=== PATIENT | female | born 1950 | race Caucasian/White ===

== ENCOUNTER → 2018-05-05 | Outpatient (CLI) | payer MEDICARE ==
--- NOTE | 2018-05-05 16:00 | Diagnostic Imaging Report ---
INDICATION: Screening for osteoporosis. EXAMINATION: DEXA scan. COMPARISON: This study was compared to the prior exam of 02/11/2016. FINDINGS: The bone mineral density of the hips and spine was measured. The T-score for the spine is -4.1. On the prior study the T-score was -4.0. The T-score for each hip is -3.0. Previously the T-score for each hip was -3.1. IMPRESSION: There has been no significant change in the bone mineral density of the hips and spine in the interval since the prior exam. There is still osteoporosis of the hips and spine. Dictated by: Dictated on workstation # [id number]
== END ==
LOC: RAD 10:39
PROVIDERS: ATTEND Internal Medicine
DX: Z13.820 Encounter for screening for osteoporosis (principal); M81.0 Age-related osteoporosis without current pathological fracture
CPT/HCPCS: 77080

== ENCOUNTER 2019-09-24 10:45 | Emergency (ER) | payer MEDICARE ==
[~2019-09-24] VITALS: Ht 160 cm; Wt 62.0 kg
--- NOTE | 2019-09-24 11:07 | ED Integumentary General ---
General Stated Complaint: R SIDE FACE/EYE REDNESS AND SWELLING Source: patient Exam Limitations: no limitations History of Present Illness Date Seen by Provider: Sep 24, 2019 Time Seen by Provider: 11:03 Initial Comments To ER with left periorbital redness and swelling that began the day after Thanksgiving. Part of this is itchy and part of it is painful. She has several areas that are crusted. Her vision is unaffected and she has no eye pain. 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 Deluca Timing/Duration: just prior to arrival Severity: moderate Location: face Associated Symptoms: denies symptoms Allergies and Home Medications Allergies Coded Allergies: No Known Drug Allergies (Unverified , 09/24/19) Patient Home Medication List Home Medication List Reviewed: Yes Review of Systems Review of Systems Constitutional: see HPI EENTM: see HPI Respiratory: no symptoms reported Cardiovascular: no symptoms reported Genitourinary: no symptoms reported Musculoskeletal: no symptoms reported Skin: no symptoms reported Psychiatric/Neurological: No Symptoms Reported Endocrine: No Symptoms Reported Past Odowfgb-Qgkejv-Tppemd Hx Patient Social History Recent Foreign Travel: No Contact w/Someone Who Travel: No Physical Exam Vital Signs Vital Signs - First Documented 09/24/19 11:12 Temp 36.7 Pulse 84 Resp 18 B/P (MAP) 143/69 (93) Pulse Ox 96 O2 Delivery Room Air Capillary Refill : General Appearance: WD/WN, no apparent distress HEENT: PERRL/EOMI, TMs normal, pharynx normal, other (there is edema to the lower eyelid on the left, there is erythema to the forehead and the upper eyelid on the left. There are a few ruptured vesicles consistent with herpes zoster. This lesion does not cross midline, it is tender to palpation. No lesions on the nose. No scleral injection) Neck: non-tender, full range of motion Cardiovascular: regular rate, rhythm, no murmur Respiratory: normal breath sounds, no respiratory distress, no accessory muscle use Gastrointestinal: normal bowel sounds, non tender Neurologic/Psychiatric: alert, normal mood/affect, oriented x 3 Skin: normal color, warm/dry Progress/Results/Core Measures Results/Orders My Orders Orders - KY SHEARER APRN Valacyclovir Tablet (Valtrex Tablet) (09/24/19 11:15) Prednisone Tablet (Deltasone Tablet) (09/24/19 11:15) Vital Signs/I&O 09/24/19 11:12 Temp 36.7 Pulse 84 Resp 18 B/P (MAP) 143/69 (93) Pulse Ox 96 O2 Delivery Room Air Departure Communication (Admissions) Dr. Healy recommends oral acyclovir for about 48 hours before starting a topical steroid. She should be reevaluated in 24-48 hours to determine need for topical steroid at that point Impression Primary Impression: Herpes zoster virus infection of face and ear nerves Disposition: HOME, SELF-CARE Condition: Stable Departure-Patient Inst. Decision time for Depature: 11:18 Referrals: SANDRA HEALY OD, WILLIAM J DO (PCP/Family) Primary Care Physician Patient Instructions: Shingles (DC) Add. Discharge Instructions: 1. Antiviral and antibiotic as directed. Oral steroids as directed. Call your eye doctor tomorrow to make an appointment to be seen tomorrow or Wednesday. If he is unable to see you them, call Dr. Healy either way you need to be seen by an eye doctor within 48 hours. Scripts Prednisone (Prednisone) 10 Mg Tab.ds.pk 10 MG PO DAILY, #21 EA Take 6 tabs(60mg)daily,decrease by 1 tab(10MG)daily. Prov: KY SHEARER APRN 09/24/19 Valacyclovir HCl (Valacyclovir) 1,000 Mg Tablet 1000 MG PO TID, #21 TAB Prov: KY SHEARER APRN 09/24/19 Cephalexin (Keflex) 500 Mg Capsule 500 MG PO TID, #21 CAP Prov: KY SHEARER APRN 09/24/19 Images Head/Face 1 - Other-See Progress Note Copy Copies To 1: CHIDI CASSIDY PETER J APRN Sep 24, 2019 11:07 POS
[2019-09-24] MEDS ORDERED: VALACYCLOVIR 500 MG TAB (VALTREX) PO SCH (11:15)
[2019-09-24] MEDS ORDERED: predniSONE 20 MG TAB PO ONE (11:15)
[2019-09-24 11:18] VITALS: BP 143/69
[2019-09-24] MEDS ORDERED: VALA1000 PO (11:22)
[2019-09-24] MEDS ORDERED: CEPH-507 PO (11:22)
[2019-09-24] MEDS ORDERED: PRED10TA22 PO (11:22)
--- OUTSIDE RECORDS SUMMARY | 2019-10-19 07:00 | XMS REPORT | Continuity of Care Document ---
Author Organization Unknown Address Unknown Phone Unavailable Allergies Active Description Code Type Severity Reaction Onset Reported/Identified Relationship to Patient Clinical Status Yes No Known Drug Allergies [id number] Drug Allergy Unknown N/A 09/24/2019 Medications There is no data. Problems Date Dx Coded Attending Type Code Diagnosis Diagnosed By 02/12/2016 CHIDI CASSIDY DO, Ot M81.0 AGE-RELATED OSTEOPOROSIS W/O CURRENT PAT 02/12/2016 CHIDI CASSIDY DO, Ot M81.0 AGE-RELATED OSTEOPOROSIS W/O CURRENT PAT 03/03/2016 CHIDI CASSIDY DO, Ot M81.0 AGE-RELATED OSTEOPOROSIS W/O CURRENT PAT 03/22/2018 CHIDI CASSIDY DO, Ot M81.0 AGE-RELATED OSTEOPOROSIS W/O CURRENT PAT 04/29/2018 CHIDI CASSIDY DO, Ot M81.0 AGE-RELATED OSTEOPOROSIS W/O CURRENT PAT 05/02/2018 CHIDI CASSIDY DO, Ot M81.0 AGE-RELATED OSTEOPOROSIS W/O CURRENT PAT 05/02/2018 CHIDI CASSIDY DO, Ot M81.0 AGE-RELATED OSTEOPOROSIS W/O CURRENT PAT 05/04/2018 CHIDI CASSIDY DO, Ot M81.0 AGE-RELATED OSTEOPOROSIS W/O CURRENT PAT 05/11/2018 CHIDI CASSIDY DO, Ot M81.0 AGE-RELATED OSTEOPOROSIS W/O CURRENT PAT 05/11/2018 CHIDI CASSIDY DO, Ot Z13.820 ENCOUNTER FOR SCREENING FOR OSTEOPOROSIS 05/11/2018 CHIDI CASSIDY DO, Ot M81.0 AGE-RELATED OSTEOPOROSIS W/O CURRENT PAT 05/11/2018 CHIDI CASSIDY DO, Ot Z13.820 ENCOUNTER FOR SCREENING FOR OSTEOPOROSIS 09/24/2019 CHIDI CASSIDY DO, Ot M81.0 AGE-RELATED OSTEOPOROSIS W/O CURRENT PAT 09/24/2019 CHIDI CASSIDY DO, Ot M81.0 AGE-RELATED OSTEOPOROSIS W/O CURRENT PAT 09/24/2019 CHIDI CASSIDY DO, Ot Z13.820 ENCOUNTER FOR SCREENING FOR OSTEOPOROSIS 09/29/2019 KY SHEARER APRN Ot B02 .8 ZOSTER WITH OTHER COMPLICATIONS Procedures There is no data. Results There is no data. Encounters ACCT No. Visit Date/Time Discharge Status Pt. Type Provider Facility Loc./Unit Complaint [id number] 09/24/2019 10:46:00 019 11:38:00 DIS Outpatient [place] SHEARER APRN [facility] ER R SIDE FACE/EYE REDNESS AND SWELLING [id number] 05/05/2018 10:39:00 018 23:59:59 CLS Outpatient CHIDI CASSIDY DO [facility] RAD AGE RELATED OST EOPOROSIS [id number] 03/22/2018 12:41:00 018 23:59:59 CLS Preadmit CHIDI CASSIDY DO [facility] RAD SCREEN [id number] 02/11/2016 10:50:00 016 23:59:59 CLS Outpatient CHIDI CASSIDY DO [facility] RAD ME1.0
== END 2019-09-24 11:38 | disposition home or self-care (01) ==
LOC: EDUNIT# 10:45 → ER 10:46
DX: B02.8 Zoster with other complications (principal)
CPT/HCPCS: 99282

== ENCOUNTER → 2021-04-01 | Outpatient (CLI) | payer MEDICARE ==
[~2021-04-01] MED LIST: CEPH-507 PO; PRED10TA22 PO; VALA10007 PO
--- NOTE | 2021-04-01 13:48 | Diagnostic Imaging Report ---
INDICATION: Postmenopausal state. COMPARISON: 05/05/2018 FINDINGS: AP Spine L1-L4: [BMD (g/cm2): 0.745] [T-Score: -3.8] [Z-Score: -2.1] [BMD Previous: 0.709] [BMD % Change: 5.1] LT Hip Neck: [BMD (g/cm2): 0.571] [T-Score: -3.4] [Z-Score: -1.6] LT Hip Total: [BMD (g/cm2):0.611] [T-Score:-3.2] [Z-Score: -1.6] [BMD Previous: 0.625] [BMD % Change: -2.2] RT Hip Neck: [BMD (g/cm2):0.578] [T-Score:-3.3] [Z-Score:-1.5] RT Hip Total: [BMD (g/cm2):0.598] [T-score:-3.3] [Z-Score:-1.7] [BMD Previous:0.631] [BMD % Change:-5.2] *Indicates significant change from prior examination based on 95% confidence level. World Health Organization criteria for BMD interpretation classify patients as Normal (T-score at or above -1.0), Osteopenic (T-score between -1.0 and -2.5) or Osteoporotic (T-score at or below -2.5). LIMITATIONS AND MODIFICATION: None. FRACTURE RISK (FRAX SCORE): The ten year probability of (%): Major Osteoporotic Fracture: [23.3] Hip Fracture: [9.5] IMPRESSION: 1. Osteoporosis. 2. No significant change in bone mineral density since prior examination. 3. See below National Osteoporosis Foundation guidelines on when to potentially initiate pharmacologic therapy. Based on the National Osteoporosis Foundation Guidelines, pharmacologic treatment should be initiated in any of the following, unless clinical conditions suggest otherwise: * Any patient with prior fragility fracture of the hip or vertebrae. A spine fracture indicates 5X risk for subsequent spine fracture and 2X risk for subsequent hip fracture. * Osteoporosis (T-score <-2.5). * Postmenopausal women and men age 50 and older with low bone mass/osteopenia (T-score between -1.0 and -2.5) by DXA and 10-year major osteoporotic fracture greater than 20% or a 10-year probability of hip fracture greater than 3%. These fracture risks are supplied above in the FRAX score, if applicable. * Clinician judgement and/or patient preferences may indicate treatment for people with 10-year fracture probabilities above or below these levels. Dictated by: Dictated on workstation # [id number]
== END ==
LOC: RAD 13:30
PROVIDERS: ATTEND Internal Medicine
DX: M81.0 Age-related osteoporosis without current pathological fracture (principal); E78.1 Pure hyperglyceridemia; Z78.0 Asymptomatic menopausal state
CPT/HCPCS: 77080

== ENCOUNTER 2021-07-07 18:06 | Emergency (ER) | payer MEDICARE ==
[~2021-07-07] VITALS: Ht 160 cm; Wt 61.6 kg
--- NOTE | 2021-07-07 18:40 | ED Upper Extremity ---
General Stated Complaint: FALL - R ARM INJ / PAIN Source: patient Exam Limitations: no limitations History of Present Illness Date Seen by Provider: Jul 07, 2021 Time Seen by Provider: 18:40 Allergies and Home Medications Allergies Coded Allergies: No Known Drug Allergies (Unverified , 09/24/19) Patient Home Medication List Cephalexin (Keflex) 500 Mg Capsule, 500 MG PO TID Prescribed by: KY SHEARER on 09/24/19 112 Prednisone (Prednisone) 10 Mg Tab.ds.pk, 10 MG PO DAILY Prescribed by: KY SHEARER on 09/24/19 112 Valacyclovir HCl (Valacyclovir) 1,000 Mg Tablet, 1,000 MG PO TID Prescribed by: KY SHEARER on 09/24/19 112 Past Lfomrzp-Qtdzuy-Fqfolo Hx Seasonal Allergies Seasonal Allergies: No Past Medical History Surgeries: Yes Appendectomy, Gallbladder Respiratory: No Cardiac: Yes High Cholesterol Neurological: No Genitourinary: No Gastrointestinal: No Musculoskeletal: No Endocrine: No HEENT: No Cancer: No Psychosocial: Yes Integumentary: Yes (shingles) Herpes Physical Exam Vital Signs Vital Signs - First Documented 07/07/21 18:38 Temp 36.8 Pulse 73 Resp 16 B/P (MAP) 125/62 (83) Pulse Ox 99 O2 Delivery Room Air Capillary Refill : Height, Weight, BMI Height: '" Weight: lbs. oz. kg; 24.00 BMI Method: Progress/Results/Core Measures Results/Orders My Orders Orders - LEONELA GIL AUTOMOTIVE ELECTRICAL FITTER Wrist, Right, 3 Views Or More (07/07/21 18:39) Hydrocodone/Apap 5/325 Tablet (Lortab 5 (07/07/21 19:15) Medications Given in ED Current Medications Medications Dose Ordered Sig/Ellen Route Start Time Stop Time Status Last Admin Dose Admin Acetaminophen/ Hydrocodone Bitart 1 ea ONCE ONCE PO 07/07/21 19:15 07/07/21 19:16 DC 07/07/21 19:32 1 EA Vital Signs/I&O 07/07/21 18:38 Temp 36.8 Pulse 73 Resp 16 B/P (MAP) 125/62 (83) Pulse Ox 99 O2 Delivery Room Air Departure Impression Primary Impression: Closed fracture distal radius and ulna Disposition: 01 HOME, SELF-CARE Condition: Improved Departure-Patient Inst. Decision time for Depature: 20:22 Referrals: SERA BISWAS MD, WILLIAM J DO (PCP/Family) Primary Care Physician Patient Instructions: Cast Care, Wrist Fracture (DC) Add. Discharge Instructions: Plan: 1. Keep arm elevated above your heart as much as possible over the next 72 hours. This is when the most swelling will occur. 2. Keep splint clean and dry. Avoid getting wet. Cover with bag or plastic wrap when showering. 3. Call Dr. Biswas's office tomorrow to schedule follow up in 7-10 days. 4. May take Tylenol 650mg by mouth every 6 hours as needed for pain fever. 5. Take Hydrocodone as needed every 6 hours for severe pain. DO NOT EXCEED 3000mg in 24 hours with the Tylenol. 6. May use ice 20 minutes at a time for pain and swelling. 7. Return to ER for any new, concerning, or worsening symptoms. Scripts Hydrocodone/Acetaminophen (Hydrocodone-Acetamin 5-325 mg) 1 Each Tablet 1 TAB PO Q6H PRN for PAIN-MODERATE (5-7), #14 TAB 0 Refills Prov: LEONELA GIL AUTOMOTIVE ELECTRICAL FITTER 07/07/21 LEONELA GIL AUTOMOTIVE ELECTRICAL FITTER Jul 07, 2021 18:40
[2021-07-07] MEDS ORDERED: HYDROcodone/APAP 5 MG/325 MG (LORTAB) TAB PO ONE (19:15)
--- NOTE | 2021-07-07 19:32 | Diagnostic Imaging Report ---
INDICATION: Fall. Wrist pain. FINDINGS: There is a mildly displaced and angulated fracture demonstrated of the distal right radial metaphysis and there is also a corresponding fracture of the ulnar styloid. Findings are superimposed on background radiocarpal osteoarthritic changes as well as arthritic changes at the 1st carpometacarpal joint. IMPRESSION: Acute distal radial and ulnar fractures as described. There is mild volar angulation of the distal radial fracture. This fracture also appears to be slightly impacted. Dictated by: Dictated on workstation # [id number]
[2021-07-07] MEDS ORDERED: ACHD5005 PO (20:26)
[2021-07-07 20:31] VITALS: BP 125/62
== END 2021-07-07 20:33 | disposition home or self-care (01) ==
LOC: EDUNIT# 18:06 → ER 18:07
DX: S52.501A Unspecified fracture of the lower end of right radius, initial encounter for closed fracture (principal); S52.611A Displaced fracture of right ulna styloid process, initial encounter for closed fracture; Z79.52 Long term (current) use of systemic steroids; W19.XXXA Unspecified fall, initial encounter
CPT/HCPCS: 29125; 73110

== ENCOUNTER → 2021-07-09 | Outpatient (CLI) | payer MEDICARE ==
[~2021-07-09] MED LIST changes: +ACHD5005 PO; +ATOR20TA66 PO; +CALC-1037 PO; +CHOL-34 PO; +FLUO20CA46 PO; +RALO60TA12 PO
== END ==
LOC: ORTHO 13:17
PROVIDERS: ATTEND Orthopaedic Surgery
DX: S52.501A Unspecified fracture of the lower end of right radius, initial encounter for closed fracture (principal); X58.XXXA Exposure to other specified factors, initial encounter
CPT/HCPCS: 99203

== ENCOUNTER 2021-07-10 07:06 | Outpatient (CLI) | payer MEDICARE ==
[~2021-07-10] VITALS: Ht 160 cm; Wt 63.0 kg
[~2021-07-10 07:06] MED LIST changes: -ATOR20TA66 PO; -CALC-1037 PO; -CHOL-34 PO; -FLUO20CA46 PO; -RALO60TA12 PO
[2021-07-10] MEDS ORDERED: FLUO20CA46 PO (11:30)
[2021-07-10] MEDS ORDERED: CHOL-34 PO (11:30)
[2021-07-10] MEDS ORDERED: CALC-1037 PO (11:30)
[2021-07-10] MEDS ORDERED: RALO60TA12 PO (11:30)
[2021-07-10] MEDS ORDERED: ATOR20TA66 PO (11:30)
== END 2021-07-10 11:33 | disposition home or self-care (01) ==
LOC: PREOP 07:06
PROVIDERS: ATTEND Orthopaedic Surgery
DX: Z01.818 Encounter for other preprocedural examination (principal)

== ENCOUNTER 2021-07-11 07:40 | Day surgery (SDC) | payer MEDICARE ==
[2021-07-11] VITALS (11 sets, daily range): BP systolic 113–142; BP diastolic 54–75
[~2021-07-11] VITALS: Ht 160 cm; Wt 63.0 kg
[~2021-07-11 07:40] MED LIST changes: +ATOR20TA66 PO; +CALC-1037 PO; +CHOL-34 PO; +FLUO20CA46 PO; +RALO60TA12 PO
[2021-07-11] MEDS: LACTATED RINGERS 1,000 ML IV PRN ×2 (08:15→09:17)
[2021-07-11] MEDS ORDERED: ONDANSETRON 4 MG/2 ML (SDV) Z0FRAN ONE (08:24)
[2021-07-11] MEDS ORDERED: LIDOCAINE PF 2% 5 ML (XYLOCAINE) VIAL ONE (08:24)
[2021-07-11] MEDS ORDERED: MIDAZOLAM 2 MG/2 ML (VERSED) VIAL ONE (08:24)
[2021-07-11] MEDS ORDERED: fentaNYL INJ 100 MCG/2 ML AMP ONE (08:24)
[2021-07-11] MEDS ORDERED: proPOfol 200 MG/20 ML (DIPRIVAN) VIAL IV ONE (08:24)
[2021-07-11] MEDS ORDERED: ceFAZolin INJECTION 1,000 MG in WATER (STERILE) FOR INJECTION 10 ML IV ONE (08:30)
[2021-07-11] MEDS ORDERED: BUPIVACAINE 0.5% 30 ML (SENSORCAINE) VIAL ONE (08:32)
[2021-07-11] MEDS ORDERED: NEO/POLY/BAC (NEOSPORIN) OINT 15 GM TUBE ONE (08:32)
[2021-07-11] MEDS ORDERED: SEVOFLURANE (ULTANE) 15 ML INHAL SOLN ONE (09:56)
--- NOTE | 2021-07-11 10:08 | Operative Report - Ortho ---
Operative Report Surgeon (s)/Video Tape Transferrer (s) Surgeon SERA NICOLE MD Video Tape Transferrer n/a Pre-Operative Diagnosis right distal radius fx Post-Operative Diagnosis same Operative Report Date of Procedure: Jul 11, 2021 Name of Procedure Performed: 1) Open reduction and internal fixation of right distal radius fracture 2) Closed treatment without manipulation of right ulnar styloid fracture Description & Findings After obtaining informed consent and marking the patient in the preoperative holding area, the patient was taken to the operating room. General anesthesia was induced. Surgical timeout was taken. The right upper extremity was prepped and draped in the usual sterile fashion. Volar approach to the distal radius was made, careful to protect the radial artery. The pronator was released and the fracture was exposed. Using traction, flexion, and ulnar deviation, the distal radius fracture was reduced. A Variax distal radius plate was selected and placed on the bone. Plate was positioned using C-arm. A nonlocking screw was placed in the oblong slot on the plate. Fracture reduction was verified and then a nonlocking screw was placed in the distal portion of the plate. 4 locking screws were then placed in the distal portion of the plate towards the ulnar side. Position of these screws and maintenance of reduction were co nfirmed using the C-arm. The 2 radial styloid locking screws were then placed followed by 2 locking screws in the shaft. Final images were obtained and demonstrated appropriate position of the hardware without intraarticular penetration and maintained reduction of the fracture; these images were transferred to the PACS. Ulnar styolid fracture remained essentially nondisplaced and it was determined to continue to treat this in closed fashion. The wound was lavaged with normal saline. The subcutaneous layer was closed with 4-0 vicryl. The skin was closed with 4-0 nylon. Wound was injected subcutaneously with 0.25% marcaine. Wound was dressed with xeroform, 4x4s, kahlil, webril, volar splint, and LEONARDA wrap. Patient tolerated the procedure well and was stable to the recovery room. Anesthesia Type General Estimated Blood Loss 10 cc Specimen(s) collected/removed None SERA NICOLE MD Jul 11, 2021 10:08
[2021-07-11] MEDS ORDERED: ONDANSETRON 4 MG/2 ML (SDV) Z0FRAN IVP PRN (10:15)
[2021-07-11] MEDS ORDERED: morphine INJ 10 MG/ML 1ML (SYR OR VIAL) IVP ONE (10:15)
[2021-07-11] MEDS ORDERED: PROMETHAZINE INJ 25 MG/ML (PHENERGAN) AMP IVP ONE (10:15)
--- NOTE | 2021-07-11 10:16 | Diagnostic Imaging Report ---
INDICATION: Right wrist fracture 3 views are obtained with a portable intensifier in surgery during ORIF of distal radial fracture. 39.7 seconds of fluoroscopy time was used. These views demonstrate anatomic alignment of the distal radial fracture with plate and screws in place. IMPRESSION: Intraoperative fluoroscopy used during ORIF of distal radial fracture. Intraoperative views show anatomic alignment post surgery. Dictated by: Dictated on workstation # [id number]
--- NOTE | 2021-07-11 11:24 | Anesthesia-General Post-Op ---
General Patient Condition Mental Status/LOC: Same as Preop Cardiovascular: Satisfactory Nausea/Vomiting: Absent Respiratory: Satisfactory Pain: Controlled Complications: Absent Post Op Complications Complications None Follow Up Care/Instructions Patient Instructions None needed. Anesthesia/Patient Condition Patient Condition Patient is doing well, no complaints, stable vital signs, no apparent adverse anesthesia problems. No complications reported per nursing. SERA LEMON CRNA Jul 11, 2021 11:24
[2021-07-11] MEDS ORDERED: ACETAMINOPHEN 500 MG TAB (TYLENOL) PO SCH (12:00)
[2021-07-11] MEDS ORDERED: IBUPROFEN 600 MG (MOTRIN) TAB PO SCH (12:00)
== END 2021-07-11 12:25 | disposition home or self-care (01) ==
LOC: SDC 07:40
PROVIDERS: ATTEND Orthopaedic Surgery
DX: S52.501A Unspecified fracture of the lower end of right radius, initial encounter for closed fracture (principal); S52.614A Nondisplaced fracture of right ulna styloid process, initial encounter for closed fracture; F32.9 Major depressive disorder, single episode, unspecified; E78.00 Pure hypercholesterolemia, unspecified; W19.XXXA Unspecified fall, initial encounter; Z79.899 Other long term (current) drug therapy
CPT/HCPCS: 25607; 25650; 76000; 87081; C1713 ×10

== ENCOUNTER → 2021-07-29 | Outpatient (CLI) | payer MEDICARE | LOC: ORTHO 09:32 | PROVIDERS: ATTEND Orthopaedic Surgery | DX: Z47.89 Encounter for other orthopedic aftercare (principal) ==

== ENCOUNTER → 2021-08-12 | Outpatient (CLI) | payer MEDICARE ==
--- NOTE | 2021-08-12 08:48 | Diagnostic Imaging Report ---
INDICATION: Postop followup for wrist fracture on the right. Comparison with 07/07/2021. FINDINGS: Volar plate and bone screws transfix the distal radial fracture with good alignment. The the fracture has shown some callus formation since previous exam. Articulating surfaces remain smooth. Radiocarpal joint shows good alignment. There has been healing of the ulnar styloid fracture as well. IMPRESSION: Satisfactory appearing healing of distal radial and ulnar styloid fractures. Dictated by: Dictated on workstation # [id number]
== END ==
LOC: ORTHO 08:16
PROVIDERS: ATTEND Orthopaedic Surgery
DX: Z48.89 Encounter for other specified surgical aftercare (principal); S52.501D Unspecified fracture of the lower end of right radius, subsequent encounter for closed fracture with routine healing; S52.611D Displaced fracture of right ulna styloid process, subsequent encounter for closed fracture with routine healing; X58.XXXD Exposure to other specified factors, subsequent encounter
CPT/HCPCS: 73110

== ENCOUNTER → 2021-09-09 | Outpatient (CLI) | payer MEDICARE ==
--- NOTE | 2021-09-09 09:32 | Diagnostic Imaging Report ---
EXAMINATION: Right wrist 3 or more views REASON FOR EXAM: Postop right wrist fracture. Follow-up. COMPARISON: 08/12/2021. FINDINGS: Stable postsurgical changes of open reduction and internal fixation in the distal right radius. There is near-anatomic alignment of the distal right radius with callus formation across the fracture in the distal right radius. No evidence of malalignment or refracture. Stable fracture seen involving the ulnar styloid without new displacement. The carpal bones of the right wrist are stable. IMPRESSION: 1. Appropriate configuration of the postsurgical changes of open reduction and internal fixation of the distal right radius with callus formation and anatomic alignment of the fracture involving the distal right radius. 2. Stable configuration of the subacute fracture involving the right ulnar styloid. Dictated by: Dictated on workstation # [id number]
== END ==
LOC: ORTHO 08:53
PROVIDERS: ATTEND Orthopaedic Surgery
DX: Z09 Encounter for follow-up examination after completed treatment for conditions other than malignant neoplasm (principal); S52.501D Unspecified fracture of the lower end of right radius, subsequent encounter for closed fracture with routine healing; S52.611D Displaced fracture of right ulna styloid process, subsequent encounter for closed fracture with routine healing; Z98.890 Other specified postprocedural states; X58.XXXD Exposure to other specified factors, subsequent encounter
CPT/HCPCS: 73110

== ENCOUNTER 2023-03-17 12:57 | Emergency (ER) | payer MEDICARE ==
[~2023-03-17 12:57] MED LIST changes: -FLUO20CA46 PO; +FLUO20CA48 PO
--- NOTE | 2023-03-17 13:20 | ED Fall/Injury ---
General Chief Complaint: Trauma-Non Activation Stated Complaint: FALL | HEAD AND BACK INJ Nursing Triage Note: PT AMB TO RM 6 WITH CC OF FALL FROM STANDING 1 [employer]. PT REPORTS HITTING HEAD DENIES LOC. PT C/O BACK, HEAD AND BILAT ARM PAIN. Source: patient, family () Exam Limitations: no limitations History of Present Illness Date Seen by Provider: March 17, 2023 Time Seen by Provider: 13:10 Initial Comments 72-year-old female presents to the emergency department today after mechanical fall. She states about 1 jumped out in front of her causing her to trip and strike her head on the pavement. She also has some pain in her bilateral paraspinal musculature lumbar region but no midline tenderness. No loss of bowel or bladder control. She is got a small abrasion to the dorsum of the right hand. No other injuries. She did not lose consciousness. No nausea or vomiting. She is not on any blood thinning medications. She is concerned because she has severe osteoporosis. All other systems reviewed and negative except documented per HPI. Voice recognition software was used to help create this chart Allergies and Home Medications Allergies Coded Allergies: meperidine (Verified Allergy, Unknown, Nausea, 07/10/21) Patient Home Medication List Home Medication List Reviewed: Yes Atorvastatin Calcium (Atorvastatin Calcium) 20 Mg Tablet, 20 MG PO DAILY, (Reported) Entered as Reported by: PHIL SMILEY on 07/10/21 1130 Calcium Carbonate/Vitamin D3 (Calcium 600 + Vit D Tablet) 1 Each Tablet, 1 EACH PO DAILY, (Reported) Entered as Reported by: PHIL SMILEY on 07/10/21 1130 Cholecalciferol (Vitamin D3) (Vitamin D3) 25 Mcg Tablet, 25 MCG PO DAILY, (Reported) Entered as Reported by: PHIL SMILEY on 07/10/21 1130 Fluoxetine HCl (Fluoxetine HCl) 20 Mg Capsule, 20 MG PO DAILY, (Reported) Entered as Reported by: PHIL SMILEY on 07/10/21 1130 Raloxifene HCl (Raloxifene HCl) 60 Mg Tablet, 60 MG PO DAILY, (Reported) Entered as Reported by: PHIL SMILEY on 07/10/21 1130 Review of Systems Review of Systems Constitutional: see HPI Past Xsxvcyt-Fmugda-Seqtuu Hx Patient Social History Tobacco Use?: No Substance use?: No Alcohol Use?: Yes Alcohol Frequency: Once in a while Pt feels they are or have been: No Immunizations Up To Date Influenza Vaccine Up-to-Date: No; Not Current First/Initial COVID19 Vaccinat: MARCH 2021 Second COVID19 Vaccination Ryder: APRIL 2021 Third COVID19 Vaccination Date: MARCH 2021 Seasonal Allergies Seasonal Allergies: No Past Medical History Surgeries: Yes (pituitary gland tumor removed) Appendectomy, Gallbladder Respiratory: No Currently Using CPAP: No Currently Using BIPAP: No Cardiac: Yes High Cholesterol Neurological: No Genitourinary: No Gastrointestinal: No Musculoskeletal: Yes Osteoporosis, Fractures Endocrine: No HEENT: No Cancer: No Psychosocial: Yes Depression Integumentary: No (shingles-2019) Herpes Blood Disorders: No Physical Exam Vital Signs Vital Signs - First Documented 03/17/23 13:05 Pulse 83 Resp 18 B/P (MAP) 144/74 (97) Pulse Ox 100 O2 Delivery Room Air Capillary Refill : Less Than 3 Seconds Height, Weight, BMI Height: '" Weight: lbs. oz. kg; 24.60 BMI Method: General Appearance: WD/WN, no apparent distress, other (Cephalhematoma right posterior occipital region.) HEENT: PERRL/EOMI, normal ENT inspection, pharynx normal Neck: non-tender, full range of motion, supple, normal inspection Cardiovascular: regular rate, rhythm, no murmur Respiratory: chest non-tender, lungs clear, normal breath sounds, no respiratory distress, no accessory muscle use Gastrointestinal: normal bowel sounds, non tender, soft, no organomegaly Extremities: normal range of motion, non-tender, no calf tenderness, other (Skin abrasion to the dorsal right hand below her index finger) Neurologic/Psychiatric: alert, oriented x 3 Skin: normal color Progress/Results/Core Measures Results/Orders My Orders Orders - GUSTAVO BARBOZA DO Ct Head Wo (03/17/23 13:17) Vital Signs/I&O 03/17/23 13:05 Pulse 83 Resp 18 B/P (MAP) 144/74 (97) Pulse Ox 100 O2 Delivery Room Air Blood Pressure Mean: 97 Departure Communication (Admissions) Patient is hemodynamically stable no focal neurologic deficits. Due to location of her injury as well as her age CT scan was obtained which is negative. I independently reviewed the images as well I agree with the radiology findings of no acute intracranial abnormalities. She is discharged home in stable condition with supportive care. Indication for back imaging as she has no midline tenderness, paraspinal tenderness which is I suspect is from the twisting motion when she fell. Impression Primary Impression: Fall Qualified Codes: W19.XXXA - Unspecified fall, initial encounter Additional Impression: Closed head injury Qualified Codes: S09.90XA - Unspecified injury of head, initial encounter Disposition: HOME, SELF-CARE Condition: Stable Departure-Patient Inst. Referrals: CHIDI CASSIDY DO (PCP/Family) Primary Care Physician Patient Instructions: Preventing Falls ED Add. Discharge Instructions: No emergent medical conditions are identified. Your symptoms are likely be worse tomorrow than they are today with soreness. This is expected. Alternate ibuprofen and Tylenol as needed for pains. Return to the emergency department for any severe concerns. All discharge instructions reviewed with patient and/or family. Voiced understanding. GUSTAVO BARBOZA DO March 17, 2023 13:20
--- NOTE | 2023-03-17 13:41 | Diagnostic Imaging Report ---
PROCEDURE: CT head without contrast. TECHNIQUE: Multiple contiguous axial images were obtained through the brain without the use of intravenous contrast. Auto Exposure Controls were utilized during the CT exam to meet ALARA standards for radiation dose reduction. INDICATION: Fall with head injury and pain. FINDINGS: The ventricles and sulci are within normal limits for size given patient's age. There is mild low-density in the deep white matter of both hemispheres. There is no abnormal mass effect or shift of the midline structures. The calvarium is intact. Degenerative findings are present within the right temporomandibular joint. IMPRESSION: No CT evidence of an acute intracranial abnormality. Note is made of probable nonspecific white matter findings in the posterior cerebral hemispheres with degenerative findings in the right temporomandibular joint and possible mucous retention cyst or polyps in the right maxillary sinus. Dictated by: Dictated on workstation # [id number]
[2023-03-17 14:00] VITALS: BP 150/41
== END 2023-03-17 14:00 | disposition home or self-care (01) ==
LOC: EDUNIT# 12:57 → ER 13:00
DX: S09.90XA Unspecified injury of head, initial encounter (principal); S06.2X0A Diffuse traumatic brain injury without loss of consciousness, initial encounter; S60.511A Abrasion of right hand, initial encounter; W01.198A Fall on same level from slipping, tripping and stumbling with subsequent striking against other object, initial encounter; Y93.39 Activity, other involving climbing, rappelling and jumping off
CPT/HCPCS: 70450

== ENCOUNTER → 2023-05-18 | Outpatient (CLI) | payer MEDICARE ==
--- NOTE | 2023-05-18 10:50 | Diagnostic Imaging Report ---
INDICATION: 73-year-old female with osteoporosis COMPARISON: 04/01/2021 FINDINGS: AP Spine L2-L4: [BMD (g/cm2): 0.771] [T-Score: -3.6] [Z-Score: -1.8] [BMD Previous: 0.745] [BMD % Change: 3.5] LT Hip Neck: [BMD (g/cm2): 0.563] [T-Score: -3.4] [Z-Score: -1.6] LT Hip Total: [BMD (g/cm2):0.617] [T-Score:-3.1] [Z-Score: -1.4] [BMD Previous: 0.611] [BMD % Change: 1.0] RT Hip Neck: [BMD (g/cm2):0.606] [T-Score:-3.1] [Z-Score:-1.2] RT Hip Total: [BMD (g/cm2):0.611] [T-score:-3.1] [Z-Score:-1.5] [BMD Previous:0.598] [BMD % Change:2.2] *Indicates significant change from prior examination based on 95% confidence level. World Health Organization criteria for BMD interpretation classify patients as Normal (T-score at or above -1.0), Osteopenic (T-score between -1.0 and -2.5) or Osteoporotic (T-score at or below -2.5). LIMITATIONS AND MODIFICATION: None. FRACTURE RISK (FRAX SCORE): Not applicable as patient meets criteria for osteoporosis. IMPRESSION: 1. Osteoporosis. 2. No significant change in bone mineral density since prior examination. 3. Consider follow-up DEXA in 24 months to reassess response to therapy. Dictated by: Dictated on workstation # [id number]
== END ==
LOC: RAD 07:52
PROVIDERS: ATTEND Nurse Practitioner Family
DX: M81.0 Age-related osteoporosis without current pathological fracture (principal)
CPT/HCPCS: 77080